=== PATIENT | female | born 1955 ===

== ENCOUNTER 2018-05-25 12:05 | Outpatient (CLI) | payer OTHER ==
[~2018-05-25] VITALS: Ht 165.1 cm; Wt 86.2 kg
== END 2018-05-25 12:20 | disposition home or self-care (01) ==
LOC: OFIC 805 12:05
DX: R13.19 Other dysphagia (principal); R09.82 Postnasal drip; J30.89 Other allergic rhinitis; K11.20 Sialoadenitis, unspecified

== ENCOUNTER 2018-09-18 13:15 | Outpatient (CLI) | payer OTHER ==
[~2018-09-18] VITALS: Ht 152.4 cm; Wt 72.6 kg
== END 2018-09-18 13:30 | disposition home or self-care (01) ==
LOC: OFIC 805 13:15
DX: K11.20 Sialoadenitis, unspecified (principal); J30.89 Other allergic rhinitis; R09.82 Postnasal drip; J32.8 Other chronic sinusitis

== ENCOUNTER 2018-10-09 14:58 | Outpatient (CLI) | payer OTHER ==
[~2018-10-09] VITALS: Ht 152.4 cm; Wt 72.6 kg
== END 2018-10-09 15:10 | disposition home or self-care (01) ==
LOC: OFIC 805 14:58
DX: J30.89 Other allergic rhinitis (principal); R09.82 Postnasal drip

== ENCOUNTER 2021-12-07 15:27 | Outpatient (CLI) | payer OTHER | END 2021-12-07 15:30 | disposition home or self-care (01) | LOC: SONOGRAMA 15:27 | PROVIDERS: ATTEND Pathology Anatomic Pathology & Clinical Pathology | DX: E04.2 Nontoxic multinodular goiter (principal) ==